=== PATIENT | female | born 1975 | race Caucasian/White ===

== ENCOUNTER 2023-02-18 07:24 | Day surgery (SDC) | payer OTHER ==
[2023-02-18] MEDS ORDERED: LIDOCAINE HCL 1% 50 MG/5 ML VL PF IJ ONE (07:25)
[2023-02-18] MEDS ORDERED: Sodium Chloride 0.9(Preservative Free) 10 ML IJ ONE (07:25)
[2023-02-18] MEDS ORDERED: Decadron 4 MG INJ IV ONE (07:25)
[2023-02-18] MEDS ORDERED: Depo-Medrol 40 MG/ML IM ONE (07:25)
[2023-02-18 08:46] LABS: HCG URINE TEST NEGATIVE (NEGATIVE)
[2023-02-18] MEDS ORDERED: DIPRIVAN 200 MG/20 ML IV ONE (09:20)
[2023-02-18] MEDS ORDERED: Versed 2 MG/2 ML Injection ONE (09:21)
[2023-02-18] MEDS ORDERED: Lactated Ringers 1,000 ML IV ONE (09:42)
--- NOTE | 2023-02-18 11:37 | XRAY ---
Indication: Left L4-S1 transforaminal SANDRA. Intraoperative fluoroscopy provided for 40 seconds. 4 digital spot images submitted for interpretation demonstrates posterior needle tips projecting over the expected left L4 and L5 nerve roots. Small amount of contrast injected for needle tip placement. Correlate with intraoperative findings/report.
--- NOTE | 2023-02-18 11:37 | XRAY ---
Indication: Left piriformis injection. Intraoperative fluoroscopy provided for 24 single seconds. Single digital spot images submitted for interpretation demonstrates posterior new tip projecting over the left piriformis. Small amount of contrast injected for needle tip placement. Correlate with intraoperative findings/report.
--- NOTE | 2023-02-18 13:56 | XRAY ---
40 seconds of fluoroscopy was used in surgery for a left L4-S1 transforaminal SANDRA.
--- NOTE | 2023-02-18 13:58 | XRAY ---
24 seconds of fluoroscopy was used in surgery for a left piriformis injection.
== END 2023-02-18 09:55 | disposition home or self-care (01) ==
LOC: SDC-PAIN 07:24
PROVIDERS: ATTEND Psychiatry & Neurology Pain Medicine
DX: M54.16 Radiculopathy, lumbar region (principal); E11.9 Type 2 diabetes mellitus without complications; Z79.899 Other long term (current) drug therapy; M79.18 Myalgia, other site
CPT/HCPCS: 20552; 64483; 64484; 72100; 72170; 77002; 77003; 81025; 82947; J1030; J1100; J2001; J2250; J2704; Q9966

== ENCOUNTER 2023-06-17 06:52 | Day surgery (SDC) | payer OTHER ==
[2023-06-17] MEDS ORDERED: LIDOCAINE HCL 2% 100 MG/5 ML IJ ONE (06:53)
[2023-06-17 07:37] LABS: HCG SERUM TEST NEGATIVE (NEGATIVE)
[2023-06-17] MEDS ORDERED: DIPRIVAN 200 MG/20 ML IV ONE (08:31)
[2023-06-17] MEDS ORDERED: Lactated Ringers 1,000 ML IV ONE (09:08)
--- NOTE | 2023-06-17 10:10 | XRAY ---
Indication: Bilateral L4-S1 MBB. Intraoperative fluoroscopy provided for 24 seconds. Single digital spot image submitted for interpretation demonstrates posterior needle tips projecting over the expected left and right L4-S1 nerve roots. Correlate with intraoperative findings/report.
--- NOTE | 2023-06-17 11:34 | XRAY ---
24 seconds of fluoroscopy was used in surgery for a bilateral L4-S1 MBB.
== END 2023-06-17 08:57 | disposition home or self-care (01) ==
LOC: SDC-PAIN 06:52
PROVIDERS: ATTEND Psychiatry & Neurology Pain Medicine
DX: M47.816 Spondylosis without myelopathy or radiculopathy, lumbar region (principal); E11.9 Type 2 diabetes mellitus without complications; Z79.899 Other long term (current) drug therapy
CPT/HCPCS: 36415; 64493; 64494; 72020; 77002; 82947; 84703; J2704

== ENCOUNTER 2023-07-22 07:28 | Day surgery (SDC) | payer OTHER ==
[2023-07-22] MEDS ORDERED: BUPIVACAINE 0.5% VIAL IJ ONE (07:29)
[2023-07-22 07:50] LABS: HCG URINE TEST NEGATIVE (NEGATIVE)
[2023-07-22] MEDS ORDERED: DIPRIVAN 200 MG/20 ML IV ONE (08:40)
--- NOTE | 2023-07-22 10:01 | XRAY ---
Indication: Bilateral L4-S1 MBB. Intraoperative fluoroscopy provided for 21 seconds. Single digital spot image submitted for interpretation demonstrates posterior needle tips projecting over expected left and right L4-S1 nerve roots. Correlate with intraoperative findings/report.
--- NOTE | 2023-07-22 10:57 | XRAY ---
21 seconds of fluoroscopy was used in surgery for a bilateral L4-S1 MBB.
[2023-07-22] MEDS ORDERED: Lactated Ringers 1,000 ML IV ONE (11:07)
== END 2023-07-22 09:07 | disposition home or self-care (01) ==
LOC: SDC-PAIN 07:28
PROVIDERS: ATTEND Psychiatry & Neurology Pain Medicine
DX: M47.816 Spondylosis without myelopathy or radiculopathy, lumbar region (principal); E11.9 Type 2 diabetes mellitus without complications
CPT/HCPCS: 64493; 64494; 72020; 77002; 81025; 82947; J2704

== ENCOUNTER 2023-08-26 08:55 | Day surgery (SDC) | payer OTHER ==
[2023-08-26] MEDS ORDERED: Depo-Medrol 40 MG/ML IM ONE (08:56)
[2023-08-26] MEDS ORDERED: BUPIVACAINE 0.5% VIAL IJ ONE (08:56)
[2023-08-26] MEDS ORDERED: LIDOCAINE HCL 1% 50 MG/5 ML VL PF IJ ONE (08:56)
[2023-08-26 09:13] LABS: HCG URINE TEST NEGATIVE (NEGATIVE)
[2023-08-26] MEDS ORDERED: DIPRIVAN 200 MG/20 ML IV ONE (11:05)
[2023-08-26] MEDS ORDERED: Lactated Ringers 1,000 ML IV ONE (11:17)
--- NOTE | 2023-08-26 13:05 | XRAY ---
Indication: Left L4-S1 RFA. Intraoperative fluoroscopy provided for 26 seconds. 4 digital spot image submitted for interpretation demonstrates posterior needle tips projecting over the expected left L4-S1 nerve roots. Correlate with intraoperative findings/report.
--- NOTE | 2023-08-26 14:06 | XRAY ---
26 seconds of fluoroscopy was used in surgery for a left L4-S1 RFA.
== END 2023-08-26 11:40 | disposition home or self-care (01) ==
LOC: SDC-PAIN 08:55
PROVIDERS: ATTEND Psychiatry & Neurology Pain Medicine
DX: M47.816 Spondylosis without myelopathy or radiculopathy, lumbar region (principal); E11.9 Type 2 diabetes mellitus without complications
CPT/HCPCS: 64635; 64636; 72100; 77002; 81025; 82947; J1030; J2001; J2704

== ENCOUNTER 2023-09-02 08:29 | Day surgery (SDC) | payer OTHER ==
[2023-09-02] MEDS ORDERED: LIDOCAINE HCL 1% 50 MG/5 ML VL PF IJ ONE (08:30)
[2023-09-02] MEDS ORDERED: BUPIVACAINE 0.5% VIAL IJ ONE (08:30)
[2023-09-02] MEDS ORDERED: Depo-Medrol 40 MG/ML IM ONE (08:30)
[2023-09-02 09:50] LABS: HCG URINE TEST NEGATIVE (NEGATIVE)
[2023-09-02] MEDS ORDERED: DIPRIVAN 200 MG/20 ML IV ONE (10:35)
[2023-09-02] MEDS ORDERED: Lactated Ringers 1,000 ML IV ONE (11:01)
--- NOTE | 2023-09-02 12:06 | XRAY ---
Indication: Right L4-S1 RFA. Intraoperative fluoroscopy provided for 19 seconds. 3 digital spot image submitted for interpretation demonstrates posterior needle tips projecting over expected right L4-S1 nerve roots. Correlate with intraoperative findings/report.
--- NOTE | 2023-09-02 12:09 | XRAY ---
19 seconds of fluoroscopy was used in surgery for a right L4-S1 RFA.
== END 2023-09-02 11:03 | disposition home or self-care (01) ==
LOC: SDC-PAIN 08:29
PROVIDERS: ATTEND Psychiatry & Neurology Pain Medicine
DX: M47.816 Spondylosis without myelopathy or radiculopathy, lumbar region (principal); E11.9 Type 2 diabetes mellitus without complications
CPT/HCPCS: 64635; 64636; 72100; 77002; 81025; 82947; J1030; J2001; J2704

== ENCOUNTER 2024-07-10 13:56 | Emergency (ER) | payer OTHER ==
--- NOTE | 2024-07-10 14:47 | ERPHSYRPT ---
- History of Present Illness Time Seen by Provider: 07/10/24 14:47 Source: patient, family Exam Limitations: no limitations Physician History: This is a 48-year-old diabetic white female patient of nurse practitioner [place] who was brought to the emergency department by family member because of a right fifth digit distal fat pad laceration. Patient's tetanus status unknown. She was using a new slicer at home Timing/Duration: today Quality: painful Severity: mild Location: hands (Right hand fifth digit palmar aspect ) Possible Causes: other (Dental laceration) Allergies/Adverse Reactions: aspirin Allergy (Verified 07/10/24 14:55) ibuprofen [From Motrin] Allergy (Verified 07/10/24 14:55) Penicillins Allergy (Verified 07/10/24 14:55) Sulfa (Sulfonamide Antibiotics) Allergy (Verified 07/10/24 14:55) Home Medications: Cetirizine HCl 10 mg PO DAILY 07/10/24 [History] Duloxetine HCl 60 mg PO DAILY 07/10/24 [History] Gabapentin 800 mg PO QID 07/10/24 [History] Levothyroxine Sodium 300 mcg PO DAILY 07/10/24 [History] Metformin HCl [Metformin HCl ER] 500 mg PO BID 07/10/24 [History] Tirzepatide [Mounjaro] 2.5 mg SQ WEEKLY 07/10/24 [History] Tizanidine HCl 4 mg PO DAILY 07/10/24 [History] Travel Risk - International Travel Have you traveled outside of the country in past 3 weeks: No - Emerging Infectious Disease Are you exhibiting symptoms associated with any current EIDs: No - Review of Systems Constitutional: No Symptoms Eyes: No Symptoms Ears, Nose, & Throat: No Symptoms Respiratory: No Symptoms Cardiac: No Symptoms Abdominal/Gastrointestinal: No Symptoms Genitourinary Symptoms: No Symptoms Musculoskeletal: No Symptoms Skin: Other (Half a centimeter by half a centimeter skin tissue loss from accidental laceration) Neurological: No Symptoms Psychological: No Symptoms Endocrine: No Symptoms Hematologic/Lymphatic: No Symptoms Immunological/Allergic: No Symptoms All Other Systems: Reviewed and Negative - Past Medical History Pertinent Past Medical History: Yes - Nursing Vital Signs Nursing Vital Signs: Initial Vital Signs Temperature 96.8 F 07/10/24 14:48 Pulse Rate 97 H 07/10/24 14:48 Blood Pressure 128/72 07/10/24 14:48 O2 Sat by Pulse Oximetry 95 07/10/24 14:48 Pain Scale Pain Intensity 5 - Physical Exam General Appearance: no apparent distress, alert, anxiety, obese Eye Exam: PERRL/EOMI, eyes nml inspection Ears, Nose, Throat Exam: normal ENT inspection, moist mucous membranes Neck Exam: normal inspection, non-tender, supple, full range of motion Respiratory Exam: airway intact, No chest tenderness, No respiratory distress Gastrointestinal/Abdomen Exam: No tenderness Pelvic Exam: not done Rectal Exam: not done Back Exam: normal inspection, normal range of motion, No CVA tenderness, No vertebral tenderness Extremity Exam: normal range of motion, pelvis stable, other (Half centimeter by half centimeter skin tissue loss distal palmar aspect of fifth digit fat pad. Mild ooze. Neurovascularly intact, tendon intact) Neurologic Exam: alert, oriented x 3, cooperative, environmental programs manager II-XII nml as tested Skin Exam: normal color, warm, dry, laceration (See above extremity section description) Lymphatic Exam: No adenopathy SpO2 Interpretation: normal O2 Delivery: Room Air Procedures - Laceration/Wound Repair Right Distal Volar Finger Time of Procedure: 15:40 Wound Location: Right, hand (Fat pad right fifth digit) Wound Length (cm): 0.5 Wound's Depth, Shape: superficial Wound Explored: clean (Wound explored to the base in bloodless field. No foreign body noted) Irrigated: Yes Hibiclens Prep: Yes Anesthesia: 1% Lidocaine Volume Anesthetic (ccs): 1 Progress: 07/10/24 15:27 No suture repair. Compression with intradermal 1% lidocaine plain followed by silver nitrate, antibiotic ointment nonstick gauze and pressure dressing - Course Nursing assessment & vital signs reviewed: Yes Ordered Tests: Medication Summary Discontinued Medications Generic Name Dose Route Start Last Admin Trade Name Freq PRN Reason Stop Dose Admin Bacitracin Zinc 0.9 each 07/10/24 15:12 07/10/24 15:48 Bacitracin Packet 1 Each Pckt TP 07/10/24 15:13 1 each STAT ONE Administration Bacitracin Zinc Confirm 07/10/24 15:40 Bacitracin Packet 1 Each Pckt Administered 07/10/24 15:41 Dose 1 each .ROUTE .STK-MED ONE Diphtheria/Tetanus/Acell Pertussis 0.5 ml 07/10/24 15:12 07/10/24 15:45 Tdap --Diph,Pertuss(Acell),Tet Vac/Pf 0.5 Ml Vial IM 07/10/24 15:13 0.5 ml .ONCE ONE Administration Diphtheria/Tetanus/Acell Pertussis Confirm 07/10/24 15:41 Tdap --Diph,Pertuss(Acell),Tet Vac/Pf 0.5 Ml Vial Administered 07/10/24 15:42 Dose 0.5 ml IM .STK-MED ONE Lidocaine HCl 5 ml 07/10/24 15:12 07/10/24 15:47 Lidocaine Hcl 1% 20 Ml Mdv 20 Ml Ml IJ 07/10/24 15:13 5 ml STAT ONE Administration Lidocaine HCl Confirm 07/10/24 15:41 Lidocaine Hcl 1% 20 Ml Mdv 20 Ml Ml Administered 07/10/24 15:42 Dose 5 ml .ROUTE .STK-MED ONE Silver Nitrate 1 pkt 07/10/24 15:12 07/10/24 15:47 Silver Nitrate 1 Pkt Each TP 07/10/24 15:13 1 pkt STAT ONE Administration Silver Nitrate Confirm 07/10/24 15:41 Silver Nitrate 1 Pkt Each Administered 07/10/24 15:42 Dose 1 pkt TP .STK-MED ONE - Progress Progress: improved, pain not gone completely, re-examined Progress Note: 07/10/24 15:28 My medical decision making and the assignment of low complexity is based on review of the patient's past medical history, review the patient's medication list, reviewed patient drug allergy list, history present illness and physical findings on examination. No radiographic or laboratory studies are necessary in the workup of this patient. Counseled pt/family regarding: diagnosis, need for follow-up Medical Desision Making - Independent Historian Additional History obtained from: Family - Diagnostic Testing Diagnostic test were ordered, analyzed, and reviewed by me: No - Risk of complications Minimal Risk: Minimal risk of morbidity - Departure Departure Disposition: Home Clinical Impression: Laceration of right little finger Condition: Stable Critical Care Time: No Referrals: EZRA PIPER NP [Primary Care Provider] - Follow up/PCP as directed Additional Instructions: Keep pressure dressing in place until the evening of 07/11/2024. At that time you may remove the bandage and rinse the site off. Do not rub the site. Blot dry or use a hair colorist to dry the site and then reapply antibiotic ointment of choice once a day covered with a bandage. May use Tylenol for pain control.
[2024-07-10 15:00] VITALS: PULSE 97; TEMP 96.8
[2024-07-10 15:07] VITALS: O2SAT 96
[2024-07-10] MEDS ORDERED: BACIGUENT PACKET ONE (15:40)
[2024-07-10] MEDS ORDERED: XYLOCAINE 1% HCL 20 ML MDV ONE (15:41)
[2024-07-10] MEDS ORDERED: ARZOL Silver Nitrate Applicator TP ONE (15:41)
[2024-07-10] MEDS ORDERED: Adacel Vial IM ONE (15:41)
[2024-07-10] MEDS: Adacel Vial IM ONE (15:45)
[2024-07-10] MEDS: ARZOL Silver Nitrate Applicator TP ONE (15:47)
[2024-07-10] MEDS: XYLOCAINE 1% HCL 20 ML MDV IJ ONE (15:47)
[2024-07-10] MEDS: BACIGUENT PACKET TP ONE (15:48)
[2024-07-10 16:08] VITALS: BP 120/94
== END 2024-07-10 16:09 | disposition home or self-care (01) ==
LOC: ED 13:56
DX: S61.216A Laceration without foreign body of right little finger without damage to nail, initial encounter (principal); W27.4XXA Contact with kitchen utensil, initial encounter; Z79.85 Long-term (current) use of injectable non-insulin antidiabetic drugs; Z79.84 Long term (current) use of oral hypoglycemic drugs; Z79.899 Other long term (current) drug therapy; Z23 Encounter for immunization
CPT/HCPCS: 90471; 90715; 96372; 99283; A9270-GY

== ENCOUNTER 2025-04-12 08:21 | Day surgery (SDC) | payer OTHER ==
[2025-04-12] MEDS ORDERED: LIDOCAINE HCL 1% 50 MG/5 ML VL IJ ONE (08:22)
[2025-04-12] MEDS ORDERED: methylPREDNISolone acetate IM ONE (08:22)
[2025-04-12] MEDS ORDERED: BUPIVACAINE 0.5% VIAL IJ ONE (08:22)
[2025-04-12 09:30] LABS: HCG URINE TEST NEGATIVE (NEGATIVE)
[2025-04-12] MEDS ORDERED: propofoL IV ONE (10:37)
[2025-04-12] MEDS ORDERED: Xylocaine-Mpf 2% 5 Ml Vial ONE (10:37)
[2025-04-12] MEDS ORDERED: Lactated Ringers 1,000 ML IV ONE (11:05)
--- NOTE | 2025-04-12 13:06 | XRAY ---
Indication: Right L4-S1 RFA. Intraoperative fluoroscopy provided for 16 seconds. 4 digital spot images submitted for interpretation demonstrates posterior needle tips projecting over expected right L4-S1 nerve roots. Correlate with intraoperative findings/report.
--- NOTE | 2025-04-12 14:00 | XRAY ---
16 seconds of fluoroscopy was used in surgery for a right L4-S1 RFA.
== END 2025-04-12 11:05 | disposition home or self-care (01) ==
LOC: SDC-PAIN 08:21
PROVIDERS: ATTEND Psychiatry & Neurology Pain Medicine
DX: M47.817 Spondylosis without myelopathy or radiculopathy, lumbosacral region (principal); E11.9 Type 2 diabetes mellitus without complications

== ENCOUNTER 2025-04-26 08:25 | Day surgery (SDC) | payer OTHER ==
[2025-04-26] MEDS ORDERED: methylPREDNISolone acetate IM ONE (08:26)
[2025-04-26] MEDS ORDERED: LIDOCAINE HCL 1% 50 MG/5 ML VL IJ ONE (08:26)
[2025-04-26] MEDS ORDERED: BUPIVACAINE 0.5% VIAL IJ ONE (08:26)
[2025-04-26 09:17] LABS: HCG URINE TEST NEGATIVE (NEGATIVE)
[2025-04-26] MEDS ORDERED: propofoL IV ONE (10:17)
--- NOTE | 2025-04-26 12:01 | XRAY ---
Indication: Left L4-S1 RFA. Intraoperative fluoroscopy provided for 20 seconds. 3 digital spot image submitted for interpretation demonstrates posterior needle tips projecting over expected left L4-S1 nerve roots. Correlate with intraoperative findings/report.
--- NOTE | 2025-04-26 12:10 | XRAY ---
20 seconds of fluoroscopy was used in surgery for a left L4-S1 RFA.
[2025-04-26] MEDS ORDERED: Lactated Ringers 1,000 ML IV ONE (13:34)
== END 2025-04-26 10:53 | disposition home or self-care (01) ==
LOC: SDC-PAIN 08:25
PROVIDERS: ATTEND Psychiatry & Neurology Pain Medicine
DX: M47.817 Spondylosis without myelopathy or radiculopathy, lumbosacral region (principal); E11.9 Type 2 diabetes mellitus without complications